=== PATIENT | male | born 1950 | race Caucasian/White ===

== ENCOUNTER → 2018-03-13 | Outpatient (CLI) | payer MEDICARE ==
--- NOTE | 2018-03-13 16:12 | PCVCIMAG ---
APPROVED REPORT Study performed: 03/13/2018 14:35:39 EXAM: Comprehensive 2D, Doppler, and color-flow Echocardiogram Patient Location: Echo lab Room #: 2Status: routine BSA: 1.87 HR: 59 bpmBP: 124/72 mmHg Rhythm: Bradycardia Other Information Study Quality: Good Indications Bradycardia Dyspnea Fatigue 2D Dimensions IVSd: 6.86 (7-11mm)LVOT Diam: 22.21 (18-24mm) LVDd: 50.54 mm PWd: 6.34 (7-11mm)Ascending Ao: 34.76 (22-36mm) LVDs: 33.25 (25-40mm) Left Atrium: 33.15 (27-40mm) Aortic Root: 31.50 mm LV Single Plane 4CH: 63.91 % LV Single Plane 2CH: 67.69 % Biplane EF: 65.7 % Volumes Left Atrial Volume (Systole) Single Plane 4CH: 45.69 mLSingle Plane 2CH: 46.88 mL Biplane LA Volume: 49.00 mLLA ESV Index: 26.00 mL/m2 Aortic Valve AoV Peak Jeffery.: 1.33 m/s AO Peak Gr.: 7.05 mmHgLVOT Max P.96 mmHg LVOT Max V: 1.00 m/s CARISSA Vmax: 2.90 cm2 Mitral Valve E/A Ratio: 2.1 MV Decel. Time: 176.64 ms MV E Max Jeffery.: 0.83 m/s MV A Jeffery.: 0.40 m/s IVRT: 114.19 ms TDI E/Lateral E': 6.92E/Medial E': 7.55 Medial E' Jeffery.: 0.11 m/s Lateral E' Jeffery.: 0.12 m/s Pulmonary Valve PV Peak Jeffery.: 0.91 m/sPV Peak Gr.: 3.33 mmHg Pulmonary Vein P Vein S: 0.68 m/sP Vein A: 0.33 m/s P Vein D: 0.72 m/sP Vein A Dur.: 134.9 msec P Vein S/D Ratio: 0.94 Tricuspid Valve TR Peak Jeffery.: 2.47 m/s TR Peak Gr.: 24.49 mmHg TV Vmax: 0.66 m/sPA Pressure: 32.00 mmHg Left Ventricle The left ventricle is normal size. There is normal LV segmental wall motion. There is normal left ventricular wall thickness. Left ventricular systolic function is normal. The left ventricular ejection fraction is within the normal range. LVEF is 65-70%. Left ventricular filling pattern is normal for age. Right Ventricle The right ventricle is normal size. The right ventricular systolic function is normal. Atria The left atrium size is normal. The right atrium size is normal. Aortic Valve The aortic valve is normal in structure. No aortic regurgitation is present. There is no aortic valvular stenosis. Mitral Valve The mitral valve is normal in structure. Trace mitral regurgitation. No evidence of mitral valve stenosis. Tricuspid Valve The tricuspid valve is normal in structure. Trace to mild tricuspid regurgitation with a PA pressure of 32 mmHg. Pulmonic Valve The pulmonary valve is normal in structure. There is no pulmonic valvular regurgitation. Great Vessels The aortic root is normal in size. The ascending aorta is normal in size. Aortic arch is not well visualized. Pericardium There is no pericardial effusion. There is no pleural effusion. <Conclusion> The left ventricle is normal size. There is normal left ventricular wall thickness. Left ventricular systolic function is normal. Left ventricular filling pattern is normal for age. The right ventricle is normal size. The left atrium size is normal. The right atrium size is normal. The aortic valve is normal in structure. Trace mitral regurgitation. Trace to mild tricuspid regurgitation with a PA pressure of 32 mmHg.
--- NOTE | 2018-03-13 16:21 | PCVCIMAG ---
APPROVED REPORT Study performed: 03/13/2018 15:17:48 Exam: Stress Echocardiogram Indication: Dyspnea , fatigue Patient Location: Echo lab Stress Nurse: Gloria Garcia RN Room #: 2 Status: routine Ht: 5 ft 6 in HR: 54 bpm BP: 124/72 mmHg Rhythm: Bradycardia Medical History Medical History: No history of CAD Previous Cardiac Procedures: none Pretest Chest Pain Characteristics: No chest pain Exercise History: Physically active Procedure The patient underwent an Exercise Stress Test using the Kayy Protocol. Blood pressure, heart rate, and EKG were monitored. An Echocardiogram was performed by restorative care technician in four stages in quad fashion. At peak stress, four selected images were obtained and placed side by side with resting images for comparison. Stress Test Details Stress Test: Exercise stress testing was performed using a Kayy protocol. HR Resting HR: 54 bpmMax Heart Rate (APMHR): 154 bpm Max HR Achieved: 169 bpmTarget HR (85% APMHR): 130 bpm % of APMHR: 109 Recovery HR: 83 bpm HR response to stress: Normal HR response to stress BP Resting BP: 124/72 mmHg Max BP: 176/80 mmHg Recovery BP: 142/76 mmHg ECG Resting ECG: Sinus Bradycardia Stress ECG: Sinus Rhythm, nonspecific ST-T abnormalities ST Change: Eqivocal Arrhythmia: Rare PAC,PVC Recovery ECG: Sinus Rhythm Recovery ST Change: Non-ischemic Recovery Arrhythmia: None Clinical Reason for Termination: Maximal effort Stress Symptoms: none Exercise duration: 14 min 01 sec Highest Stage Achieved: Stage 5: 5.0 mph at 18% grade. Exercise capacity: 17.5 METs Overall Exercise Capacity for Age: Excellent Scale: Active Angina Score: None No complications. Stress ECG Conclusion The patient exercised according to the KAYY protocol for 14:01 mins; achieving a work level of 17.5 METS. The resting heart rate of 54 bpm shirley to a maximum heart rate of 169 bpm. This value represent 109 % of the maximal, age-predicted heart rate. The resting blood pressure of 124/72 mmHg, shirley to a maximum blood pressure of 176/80 mmHg. The exercise test was stopped due to fatigue. Pre-Stress Echo The resting Echocardiogram showed normal left ventricular contractility with an estimated Ejection Fraction of about 55-60%. Normal wall motion in all segments on baseline images. Post-Stress Echo The stress Echocardiogram showed normal left ventricular contractility with an estimated Ejection Fraction of about 65-70%. Normal augmentation of wall motion in all segments on post stress images. Clinical No clinical or ECG evidence for ischemia. Conclusion Clinical Response: Non-ischemic Exercise Capacity: Superior Stress ECG Response: Equivocal Stress Echo Images: Non-ischemic No echocardiographic evidence for exercise induced ischemia. No prior study available for comparison. <Conclusion> No echocardiographic evidence for exercise induced ischemia.
== END | disposition home or self-care (01) ==
LOC: PCVCIMAG 14:55
PROVIDERS: ATTEND Internal Medicine Cardiovascular Disease
DX: R00.1 Bradycardia, unspecified (principal); R03.0 Elevated blood-pressure reading, without diagnosis of hypertension; R53.83 Other fatigue; R06.02 Shortness of breath
CPT/HCPCS: 93005; 93306; 93351; G0463